=== PATIENT | female | born 1950 ===

== ENCOUNTER 2018-05-03 07:54 | Outpatient (CLI) | payer OTHER | END 2018-05-03 07:55 | disposition home or self-care (01) | LOC: C.MAMMO 07:54 | DX: Z12.31 Encounter for screening mammogram for malignant neoplasm of breast (principal) ==

== ENCOUNTER 2018-05-03 08:10 | Outpatient (CLI) | payer OTHER | END 2018-05-03 08:11 | disposition home or self-care (01) | LOC: C.RADIC 08:10 | DX: R06.00 Dyspnea, unspecified (principal) ==

== ENCOUNTER 2018-05-03 08:25 | Outpatient (CLI) | payer OTHER | END 2018-05-03 08:26 | disposition home or self-care (01) | LOC: C.LAB 08:25 ==

== ENCOUNTER 2018-06-29 11:22 | Outpatient (CLI) | payer OTHER | END 2018-06-29 11:23 | disposition home or self-care (01) | LOC: C.LAB 11:22 | DX: K29.60 Other gastritis without bleeding (principal); M41.9 Scoliosis, unspecified; M54.2 Cervicalgia; M79.7 Fibromyalgia; R50.9 Fever, unspecified; L08.9 Local infection of the skin and subcutaneous tissue, unspecified; N39.0 Urinary tract infection, site not specified ==

== ENCOUNTER 2018-07-16 10:06 | Outpatient (CLI) | payer OTHER | END 2018-07-16 10:07 | disposition home or self-care (01) | LOC: C.CTH 10:06 | DX: K59.00 Constipation, unspecified (principal) ==

== ENCOUNTER 2018-07-17 14:59 | Emergency (ER) | payer OTHER ==
[2018-07-17 15:00] VITALS: BMI 29.4
--- NOTE | 2018-07-17 15:46 | C.PDOC ---
History Of Present Illness 67 year old female presents to ED with complaint of worsening SOB for the past 2 days. Patient has had SOB for 1 month. Patient has dyspnea on exertion and intermittent swelling of the lower extremities when she stands or walks for a long periods of time. Patient also complains of nocturnal orthopnea. Patient has also had an intermittent subjective fever for 1 month. She denies taking any water pills and states that she tried a nebulizer treatment last night with no improvement. Patient denies chest pain, dizziness, and cough. Time Seen by Provider: 07/17/18 15:35 Chief Complaint (Nursing): Shortness Of Breath History Per: Patient History/Exam Limitations: no limitations Onset/Duration Of Symptoms: Other (1 month) Current Symptoms Are (Timing): Worse Exacerbating Factor(s): Laying Flat Associated Symptoms: Fever, Ankle/Leg Swelling. denies: Chills, Sweating, Chest Pain, Bloody Cough, Productive Cough, Dizziness Past Medical History Reviewed: Historical Data, Nursing Documentation, Vital Signs Vital Signs: Last Vital Signs Temp 98.9 F 07/17/18 15:29 Pulse 55 L 07/17/18 15:29 Resp 18 07/17/18 15:29 BP 143/70 07/17/18 15:29 Pulse Ox 99 07/17/18 15:29 Primary Care Provider: Bib Tineo - Medical History PMH: Arthritis, Gastritis, Hypercholesterolemia, Osteoporosis, Sleep Apnea Denies: Fractures, Chronic Kidney Disease Surgical History: Endoscopy Denies: Pacemaker - [facility] Procedures ESOPHAGOGASTRODUODENOSCOPY [EGD] W/CLOSED BIOPSY (07/25/14) Family History: States: Unknown Family Hx - Social History Hx Alcohol Use: No Hx Substance Use: No Review Of Systems Except As Marked, All Systems Reviewed And Found Negative. Constitutional: Positive for: Fever Cardiovascular: Positive for: Orthopnea Respiratory: Positive for: Shortness of Breath, SOB with Excertion Musculoskeletal: Positive for: Other (swelling of the lower extremities) Physical Exam - Physical Exam Appears: Non-toxic, Other (mild distress, speaking full sentences) Skin: Normal Color, Warm, Dry Head: Atraumatic, Normacephalic Eye(s): bilateral: Normal Inspection Oral Mucosa: Moist Throat: Normal, No Erythema, No Exudate Neck: Normal ROM, Supple Chest: Symmetrical, No Deformity, No Tenderness Cardiovascular: Rhythm Regular, No Murmur Respiratory: No Accessory Muscle Use, Rales (faint basal rales bilaterally), No Rhonchi, No Wheezing Gastrointestinal/Abdominal: Soft, No Tenderness, No Other (retraction) Extremity: Normal ROM, No Calf Tenderness, Capillary Refill (<2 seconds), No Swelling Extremity: Bilateral: Atraumatic, Normal Color And Temperature Pulses: Left Radial: Normal, Right Radial: Normal, Left Dorsalis Pedis: Normal, Right Dorsalis Pedis: Normal Neurological/Psych: Oriented x3, Normal Speech, Normal Cognition Gait: Steady ED Course And Treatment - Laboratory Results Result Diagrams: 07/17/18 17:09 07/17/18 17:09 ECG: Interpreted By Me, Viewed By Me ECG Rhythm: Sinus Bradycardia ECG Interpretation: Normal Rate From EC O2 Sat by Pulse Oximetry: 99 (in RA) Pulse Ox Interpretation: Normal - Radiology CXR: Interpreted by Me CXR Interpretation: Yes: Other (KYPHOSIS SCOLIOSIS NO CHF). No: Infiltrates Progress Note: EKG and CXR ordered. Labs ordered with CMP, troponin, d-dimer, and CBC. Reevaluation Time: 18:04 Reassessment Condition: Unchanged (NARD APPEARS COMFORTABLE VSS. CO TENSION HEADACHE. NEURO INTACT. NEG LABS. ADVISED FU PMD, POSSIBLE PULM FU. pt and family now state has been eval for abd distention s/p outpt ct 07/16/18, mult prior tests "for why she has fever" recent testing for TB, parasitic disease "they said it's all neg") Disposition Counseled Patient/Family Regarding: Studies Performed, Diagnosis, Need For Followup - Disposition Referrals: YOUR,PMD [Other] Disposition: HOME/ ROUTINE Disposition Time: 18:04 Condition: GOOD Additional Instructions: FOLLOW UP WITH YOUR PMD THIS WEEK. RETURN IF WORSENING SYMPTOMS. Instructions: Shortness of Breath (Dyspnea) (DC) Forms: [email or web address] ([place]anian) - Clinical Impression Clinical Impression: Dyspnea - Scribe Statement The provider has reviewed the documentation as recorded by the Scribe (Daphne Govea) All medical record entries made by the Scribe were at my direction and personally dictated by me. I have reviewed the chart and agree that the record accurately reflects my personal performance of the history, physical exam, medical decision making, and the department course for this patient. I have also personally directed, reviewed, and agree with the discharge instructions and disposition.
[2018-07-17 16:17] VITALS: O2SAT 99
--- NOTE | 2018-07-17 16:53 | RAD ---
HISTORY: SOB COMPARISON: Chest x-ray performed 05/03/18 TECHNIQUE: Chest PA and lateral, 2 views FINDINGS: Examination limited by habitus and marked obliquity. LUNGS: No focal consolidation. Please note that chest x-ray has limited sensitivity for the detection of pulmonary masses. PLEURA: No significant pleural effusion identified. No definite pneumothorax . CARDIOVASCULAR: Cardiomegaly. OSSEOUS STRUCTURES: Severe scoliosis convex to the right. VISUALIZED UPPER ABDOMEN: Retained oral contrast within the imaged colon. OTHER FINDINGS: None. IMPRESSION: Cardiomegaly. Hypoinflation. Severe scoliosis.
[2018-07-17 17:12] LABS: BASO # 0.1 K/uL (0.0-0.2); BASO % 0.8 % (0.0-2.0); EOS # 0.2 K/uL (0.0-0.7); EOS % 2.3 % (0.0-4.0); HEMOGLOBIN 12.4 g/dL (11.0-16.0); LYMPH # 2.3 K/uL (1.0-4.3); LYMPH % 33.1 % (20.0-40.0); MEAN CELL VOLUME 83.9 fL (81.0-99.0); MEAN CORPUSCULAR HEMOGLOBIN 27.8 pg (27.0-31.0); MEAN CORPUSCULAR HGB CONC 33.1 g/dL (33.0-37.0); MEAN PLATELET VOLUME 8.2 fL (7.2-11.7); MONO # 0.7 K/uL (0.0-0.8); MONO % 9.4 % (0.0-10.0); NEUT # 3.8 K/uL (1.8-7.0); NEUT % 54.4 % (50.0-75.0); NRBC % 0.1 % (0.0-2.0); RBC 4.48 Mil/uL (3.80-5.20); RED CELL DISTRIBUTION WIDTH 13.9 % (11.5-14.5)
[2018-07-17 17:25] LABS: ALB/GLOB RATIO 1.2 (1.0-2.1); ALBUMIN 3.9 g/dL (3.5-5.0); ALT/SGPT 17 U/L (9-52); AST/SGOT 23 U/L (14-36); BLOOD UREA NITROGEN 12 mg/dL (7-17); CALCIUM 9.3 mg/dl (8.6-10.4); GFR NON-AFRICAN AMERICAN > 60
[2018-07-17 17:36] LABS: B-TYPE NATRIURETIC PEPTIDE 49.5 pg/mL (0-900)
[2018-07-17 18:57] VITALS: BP 135/81; PULSE 54; RESP 20; TEMP 98.8
--- NOTE | 2018-07-19 01:11 | CARD ---
APPROVED REPORT Date of service: 07/17/2018 EKG Measurement Heart [id number] <Conclusion> Sinus bradycardia Otherwise normal ECG
== END 2018-07-17 18:53 | disposition home or self-care (01) ==
LOC: C.ER 14:59
DX: R06.00 Dyspnea, unspecified (principal)

== ENCOUNTER 2018-07-21 11:24 | Outpatient (CLI) | payer OTHER | END 2018-07-21 11:25 | disposition home or self-care (01) | LOC: C.LAB 11:24 | DX: M54.81 Occipital neuralgia (principal); I67.7 Cerebral arteritis, not elsewhere classified; M31.5 Giant cell arteritis with polymyalgia rheumatica ==

== ENCOUNTER 2018-07-31 13:13 | Outpatient (CLI) | payer OTHER | END 2018-07-31 13:14 | disposition home or self-care (01) | LOC: C.LAB 13:13 | DX: Z12.4 Encounter for screening for malignant neoplasm of cervix (principal); Z11.51 Encounter for screening for human papillomavirus (HPV) ==

== ENCOUNTER 2018-08-03 19:48 | Outpatient (CLI) | payer OTHER | END 2018-08-03 19:49 | disposition home or self-care (01) | LOC: C.SLEEP 19:49 | DX: G47.33 Obstructive sleep apnea (adult) (pediatric) (principal) ==